=== PATIENT | female | born 1995 ===

== ENCOUNTER 2019-07-09 17:30 | Emergency (ER) | payer SELFPAY ==
[~2019-07-09] VITALS: Ht 162.6 cm; Wt 63.3 kg
[2019-07-09 17:53] VITALS: BP 119/65
[2019-07-09] MEDS ORDERED: ACETAMINOPHEN 500 MG TABLET PO ONE (18:30)
[2019-07-09] MEDS ORDERED: IBUPROFEN 200 MG TABLET PO ONE (18:30)
--- NOTE | 2019-07-09 18:33 | NUR ---
PT STATES THAT HER THROAT FEELS SWOLLEN. SHE STATES NEEDS PRESCRIPTION FOR KEPPRA. PT ADMITS TO DRINKING ALCOHOL TODAY
--- NOTE | 2019-07-09 18:33 | NUR ---
additionally pt states she feels hands and body are swollen with some redness bilateral hands noted
[2019-07-09] MEDS ORDERED: IBUPROFEN 600 MG TABLET ONE (18:38)
[2019-07-09] MEDS ORDERED: ACETAMINOPHEN 500 MG TABLET ONE (18:38)
--- NOTE | 2019-07-09 18:44 | NUR ---
Bedside report from Leanna melgar. This rn to assume care of pt. Medicated per mar via omayra rn. Up for recheck. Awaiting md recheck.
== END 2019-07-10 02:06 | disposition home or self-care (01) ==
LOC: ED 07-10
DX: J04.0 Acute laryngitis (principal); F17.200 Nicotine dependence, unspecified, uncomplicated
CPT/HCPCS: 99283